=== PATIENT | male | born 1985 | race Two or more races ===

== ENCOUNTER → 2024-09-30 | Outpatient (CLI) | payer OTHER, SELFPAY ==
[2024-10-07 06:46] LABS: Testosterone, Free,Dialysis 58.7 pg/mL (35.0-155.0); Testosterone, Total, Dialysis 345 ng/dL (250-1100)
== END | disposition home or self-care (01) ==
LOC: COPL 15:53
PROVIDERS: PCP Nurse Practitioner Family; Referring Provider Surgery; Visit Provider Surgery
DX: N52.9 Male erectile dysfunction, unspecified (principal)
CPT/HCPCS: 36415; 84402; 84403